=== PATIENT | male | born 1975 | race Caucasian/White ===

== ENCOUNTER → 2025-06-18 10:49 | Outpatient (CLI) | payer OTHER, SELFPAY ==
--- NOTE | 2025-06-18 10:54 | DI.RAD.S_ITS ---
PROCEDURE: XR FOOT LT 2V INDICATIONS: WOUND TECHNIQUE: 3 views of the foot were acquired. COMPARISON: None. FINDINGS: Bones: Moderate spurring from the anterior tibial plafond may predispose to anterior impingement on ankle dorsiflexion. Mild pes cavus and hammertoe deformities 2nd through 5th digits . Minimal deformity medial and lateral malleoli are suboptimally imaged but suggest old healed fractures Joints: Mild degeneration 1st MTP and 2nd through 5th interphalangeal joints . Soft tissues: Mild calcification Achilles tendon insertion on the calcaneus. Mild diffuse soft tissue swelling IMPRESSION: Chronic findings. Dictated by: Barney Canales M.D. on 06/19/2025 at 7:18 Approved by: Barney Canales M.D. on 06/19/2025 at 7:20
== END ==
PROVIDERS: Referring Provider Family Medicine; Visit Provider Family Medicine
DX: S81.809A Unspecified open wound, unspecified lower leg, initial encounter (principal); M19.072 Primary osteoarthritis, left ankle and foot; M21.6X2 Other acquired deformities of left foot; M20.42 Other hammer toe(s) (acquired), left foot; M79.89 Other specified soft tissue disorders; M65.872 Other synovitis and tenosynovitis, left ankle and foot
CPT/HCPCS: 73620